=== PATIENT | female | born 1955 | race Caucasian/White ===

== ENCOUNTER 2018-08-18 11:24 | Inpatient (IN) | payer MEDICAID, OTHER ==
[~2018-08-18] VITALS: Ht 134.6 cm; Wt 50.8 kg
[2018-08-18] MEDS ORDERED: BUPR-93 PO (11:52)
[2018-08-18] MEDS ORDERED: MELO-107 PO (11:52)
[2018-08-18] MEDS ORDERED: HYDR25TA PO (11:52)
[2018-08-18] MEDS ORDERED: LISI-662 PO (11:52)
[2018-08-18] MEDS ORDERED: SERT50TA12 PO (11:52)
[2018-08-18] MEDS ORDERED: HYDR-4031 PO (11:52)
[2018-08-18] MEDS ORDERED: ALLO100T PO (11:52)
[2018-08-18] MEDS ORDERED: ATOR40TA28 PO (11:52)
[2018-08-18] MEDS ORDERED: TRAZ-219 PO (12:13)
[2018-08-18 12:49] LABS: BASOPHILS % (AUTO) 0.7 % (0.0-2.0); EOSINOPHILS % (AUTO) 0.9 % (1.0-6.0); HEMOGLOBIN 12.8 g/dL (12.0-16.0); LYMPHOCYTES # (AUTO) 1.8 K/uL (1.0-4.8); LYMPHOCYTES % (AUTO) 21.7 % (22.0-44.0); MEAN CORPUSCULAR HEMOGLOBIN 20.9 pg (26.0-34.0); MEAN CORPUSCULAR HGB CONC 31.3 G/dL (31.0-37.0); MEAN CORPUSCULAR VOLUME 67 fL (80-100); MONOCYTES # (AUTO) 0.4 K/uL (0.1-1.0); MONOCYTES % (AUTO) 5.3 % (2.0-9.0); NEUTROPHILS % (AUTO) 71.4 % (40.0-70.0); PLATELET COUNT (AUTO) 283 K/uL (150-450); RED BLOOD CELL COUNT(AUTO) 6.13 MIL/uL (4.00-5.20); RED CELL DISTRIBUTION WIDTH 16.3 % (11.5-14.5)
[2018-08-18 12:55] LABS: APPEARANCE,URINE CLOUDY (CLEAR); BILIRUBIN,URINE NEGATIVE (NEGATIVE); GLUCOSE, URINE (UA) NEGATIVE (NEGATIVE); KETONES,URINE NEGATIVE (NEGATIVE); LEUKOCYTE ESTERASE ,URINE NEGATIVE (NEGATIVE); NITRATE,URINE NEGATIVE (NEGATIVE); OCCULT BLOOD,URINE NEGATIVE (NEGATIVE); PROTEIN,URINE POS 1+ (NEGATIVE); UROBILINOGEN,URINE 0.2 mg/dL (<=1.0)
[2018-08-18 12:59] LABS: AMPHET/METH SCREEN,URINE NEGATIVE (NEGATIVE); BARBITURATE SCREEN, URINE NEGATIVE (NEGATIVE); BENZODIAZEPINES SCREEN,URINE NEGATIVE (NEGATIVE); CANNABINOID SCREEN,URINE NEGATIVE (NEGATIVE); COCAINE SCREEN,URINE NEGATIVE (NEGATIVE); METHADONE SCREEN, URINE NEGATIVE (NEGATIVE); OPIATE SCREEN,URINE NEGATIVE (NEGATIVE); PHENCYCLIDINE SCREEN,URINE NEGATIVE (NEGATIVE)
[2018-08-18 13:06] LABS: SALICYLATE < 0.2 mg/dL (2.8-20.0)
[2018-08-18 13:18] LABS: ANION GAP 8 mmol/L (8-16); CALCIUM, TOTAL 9.8 mg/dL (8.8-10.5); CARBON DIOXIDE 27 mmol/L (22-29); CHLORIDE 98 mmol/L (98-107); CREATININE 1.39 mg/dL (0.60-1.30); GLOMERULAR FILTR. RATE CALC 38 mL/min (>60); GLUCOSE,RANDOM 98 mg/dL (70-110); POTASSIUM 5.4 mmol/L (3.5-5.1); SODIUM SERUM 133 mmol/L (136-145); UREA NITROGEN, BLOOD 20 mg/dL (7-18)
[2018-08-18 13:23] LABS: ALANINE AMINOTRANSFERASE 30 U/L (12-78); ALKALINE PHOSPHATASE 74 U/L (46-116); ASPARTATE AMINOTRANSFERASE 46 U/L (15-37); BILIRUBIN,TOTAL 0.7 mg/dL (0.1-1.0); LIPASE 347 U/L (73-393); TOTAL PROTEIN, SERUM 8.8 g/dL (6.4-8.2)
[2018-08-18 13:25] LABS: ACETAMINOPHEN < 2 mcg/mL (10-30)
[2018-08-18 13:33] LABS: BACTERIA,URINE Few /HPF (None Seen); RBC,URINE 0-2 /HPF (0-2); SQUAMOUS EPITHELIAL CELL,UR Rare /LPF (None Seen); WBC,URINE 0-2 /HPF (0-5)
[2018-08-18 13:34] LABS: AMORPHOUS SEDIMENT,UR Few /LPF (None Seen); FINE GRANULAR CASTS,URINE 0-2 /LPF (None Seen)
[2018-08-18] MEDS ORDERED: SODIUM CHLORIDE 0.9% 2,000 ML IV ONE (14:30)
[2018-08-18] MEDS ORDERED: LORazepam 2 MG TABLET PO PRN (17:00)
[2018-08-18] MEDS ORDERED: ZOLPIDEM TARTRATE 10 MG TABLET PO PRN (17:00)
[2018-08-18] MEDS ORDERED: HALOPERIDOL 5 MG TABLET PO PRN (17:00)
[2018-08-18 18:21] LABS: CALCIUM, TOTAL 8.4 mg/dL (8.8-10.5); CHOL/HDL RATIO 2.7 (3.9-5.7); CREATININE 1.17 mg/dL (0.60-1.30); POTASSIUM 4.2 mmol/L (3.5-5.1)
[2018-08-18 22:32] VITALS: BP 122/74
[2018-08-18] MEDS ORDERED: CloNIDine HCL 0.1 MG TABLET PO PRN (23:30)
[2018-08-18] MEDS ORDERED: LOPERAMIDE HCL 2 MG CAPSULE PO PRN (23:30)
[2018-08-18] MEDS ORDERED: NICOTINE 14 MG/24 HOUR PATCH TD PRN (23:30)
[2018-08-18] MEDS ORDERED: DOCUSATE SODIUM 100 MG CAPSULE PO PRN (23:30)
[2018-08-18] MEDS ORDERED: IBUPROFEN 400 MG TABLET PO PRN (23:30)
[2018-08-18] MEDS ORDERED: GuaiFENesin/D-METHORPHAN [SUGAR-FREE] 200-20MG/10 ML SYRUP UDCUP PO PRN (23:30)
[2018-08-18] MEDS ORDERED: ALBUTEROL SULFATE HFA 90 MCG/PUFF 8 GM INHALER IH PRN (23:30)
[2018-08-18] MEDS ORDERED: MAGNESIUM HYDROXIDE SUSPENSION 30 ML UDCUP PO PRN (23:30)
[2018-08-18] MEDS ORDERED: MAG HYDROX/AL HYDROX/SIMETH ES 30 ML SUSPENSION UDCUP PO PRN (23:30)
[2018-08-18] MEDS ORDERED: ONDANSETRON HCL 4 MG TABLET PO PRN (23:30)
[2018-08-18] MEDS ORDERED: PETROLATUM,WHITE 28 GM JELLY TP PRN (23:30)
[2018-08-19 06:11] LABS: HEMATOCRIT 33.7 % (36-46); HEMOGLOBIN 10.4 g/dL (12.0-16.0); LYMPHOCYTES # (AUTO) 2.4 K/uL (1.0-4.8); LYMPHOCYTES % (AUTO) 31.6 % (22.0-44.0); MEAN CORPUSCULAR HEMOGLOBIN 20.5 pg (26.0-34.0); MEAN CORPUSCULAR HGB CONC 30.8 G/dL (31.0-37.0); MEAN CORPUSCULAR VOLUME 67 fL (80-100); MONOCYTES # (AUTO) 0.5 K/uL (0.1-1.0); MONOCYTES % (AUTO) 6.7 % (2.0-9.0); NEUTROPHILS # (AUTO) 4.4 K/uL (1.8-7.7); NEUTROPHILS % (AUTO) 58.7 % (40.0-70.0); PLATELET COUNT (AUTO) 252 K/uL (150-450); RED BLOOD CELL COUNT(AUTO) 5.06 MIL/uL (4.00-5.20); RED CELL DISTRIBUTION WIDTH 15.8 % (11.5-14.5)
[2018-08-19 06:20] LABS: HEMOGLOBIN A1C 6.2 % (4.5-6.2)
[2018-08-19 06:50] LABS: ALBUMIN 2.9 g/dL (3.4-5.0); BILIRUBIN,TOTAL 0.3 mg/dL (0.1-1.0); CALCIUM, TOTAL 8.8 mg/dL (8.8-10.5); CHOL/HDL RATIO 2.8 (3.9-5.7); POTASSIUM 4.4 mmol/L (3.5-5.1); TOTAL PROTEIN, SERUM 6.5 g/dL (6.4-8.2)
[2018-08-19 07:13] LABS: THYROID STIMULATING HORMONE 0.59 uIU/mL (0.36-3.74)
[2018-08-19 08:30] VITALS: BP 101/60
[2018-08-19] MEDS: BuPROPion HCL XL 150 MG ER TABLET PO SCH (11:19)
[2018-08-19 22:29] VITALS: BP 106/65
[2018-08-20 07:04] VITALS: BP 104/62
[2018-08-20 08:59] VITALS: BP 110/70
[2018-08-20] MEDS: ATORVASTATIN CALCIUM 40 MG TABLET PO SCH (09:38)
[2018-08-20] MEDS: HYDROCHLOROTHIAZIDE 25 MG TABLET PO SCH (09:38)
[2018-08-20] MEDS: BuPROPion HCL XL 150 MG ER TABLET PO SCH (09:38)
[2018-08-20] MEDS: ALLOPURINOL 100 MG TABLET PO SCH (09:39)
[2018-08-20] MEDS: LISINOPRIL 20 MG TABLET PO SCH (09:39)
[2018-08-20 17:23] VITALS: BP 128/72
[2018-08-21 02:00] VITALS: BP 117/70
[2018-08-21] MEDS: ACETAMINOPHEN 325 MG TABLET PO PRN ×2 (02:03→09:39)
[2018-08-21 09:39] VITALS: BP 124/79
[2018-08-21] MEDS: ALLOPURINOL 100 MG TABLET PO SCH (09:39)
[2018-08-21] MEDS: BuPROPion HCL XL 150 MG ER TABLET PO SCH (09:41)
[2018-08-21] MEDS: HYDROCHLOROTHIAZIDE 25 MG TABLET PO SCH (09:41)
[2018-08-21] MEDS: LISINOPRIL 20 MG TABLET PO SCH (09:41)
[2018-08-21] MEDS: ATORVASTATIN CALCIUM 40 MG TABLET PO SCH (09:41)
[2018-08-21] MEDS ORDERED: DOXE10 PO (15:41)
[2018-08-21] MEDS ORDERED: DOXEPIN HCL 10 MG CAPSULE PO SCH (21:00)
== END 2018-08-21 19:30 | disposition home or self-care (01) | DRG 751 ==
LOC: EMS 11:27 → 3EI 18:09
DX: F33.2 Major depressive disorder, recurrent severe without psychotic features (principal); E87.5 Hyperkalemia; D64.9 Anemia, unspecified; T43.212A Poisoning by selective serotonin and norepinephrine reuptake inhibitors, intentional self-harm, initial encounter; E78.5 Hyperlipidemia, unspecified; E86.0 Dehydration; F41.9 Anxiety disorder, unspecified; I10 Essential (primary) hypertension; M10.9 Gout, unspecified; Z79.899 Other long term (current) drug therapy; Y92.89 Other specified places as the place of occurrence of the external cause; Z91.5 Personal history of self-harm
CPT/HCPCS: 51702; 83036; 84443; 93005; 99291; G0480; G0481; J7030